=== PATIENT | male | born 1940 | race Caucasian/White ===

== ENCOUNTER 2017-10-11 15:43 | Emergency (ER) | payer MEDICARE, OTHER ==
[~2017-10-11] VITALS: Ht 177.8 cm; Wt 77.1 kg
[2017-10-11 16:23] LABS: BASOPHILS ABSOLUTE AUTO 0.05 K/mm3 (0.00-0.23); BASOPHILS PERCENT AUTO 1 % (0-2); EOSINOPHILS ABSOLUTE AUTO 0.36 K/mm3 (0.00-0.68); EOSINOPHILS PERCENT AUTO 5 % (0-6); Hematocrit 43.7 % (37.0-53.0); Hemoglobin 15.1 g/dL (13.5-17.5); IMMATURE GRAN ABSOLUTE AUTO 0.03 K/mm3 (0.00-0.10); IMMATURE GRAN PERCENT AUTO 0 % (0-1); LYMPHOCYTES ABSOLUTE AUTO 1.59 K/mm3 (0.84-5.20); LYMPHOCYTES PERCENT AUTO 21 % (21-46); MONOCYTES ABSOLUTE AUTO 0.88 K/mm3 (0.16-1.47); MONOCYTES PERCENT AUTO 12 % (4-13); Mean Corpuscular HGB 33.2 pg (26.0-34.0); Mean Corpuscular HGB Conc 34.6 g/dL (31.5-36.5); Mean Corpuscular Volume 96 fL (80-100); NEUTROPHILS ABSOLUTE AUTO 4.77 K/mm3 (1.96-9.15); NEUTROPHILS PERCENT AUTO 62 % (41-73); Platelet Count 211 K/mm3 (150-400); RDW Coefficient Variation 15.4 % (11.7-14.2); RDW Standard Deviation 54.4 fL (35.1-46.3); Red Blood Cell Count 4.55 M/mm3 (4.30-5.90); White Blood Cell Count 7.68 K/mm3 (4.00-11.30)
[2017-10-11 16:41] LABS: Alanine Aminotransfer (ALT/SGP 19 U/L (12-78); Albumin, Blood 3.1 g/dL (3.4-5.0); Albumin/Globulin Ratio 0.7 (0.8-1.8); Alk Phos 95 U/L (50-136); Anion Gap 7 mmol/L (6-16); Aspartate Aminotrans (AST/SGOT 35 U/L (12-37); Blood Urea Nitrogen 16 mg/dL (8-24); Bun/Creatinine Ratio 13.7 (12.0-20.0); CO2, Blood 26 mmol/L (21-32); Calcium, Blood 8.7 mg/dL (8.5-10.1); Chloride, Blood 105 mmol/L (98-108); Creatinine, Blood 1.17 mg/dL (0.60-1.20); Globulin, Blood 4.2 g/dL (2.2-4.0); Glomerular Filtration Rate >60 (60-); Glucose, Blood 90 mg/dL (70-99); Potassium, Blood 4.9 mmol/L (3.5-5.5); Sodium, Blood 138 mmol/L (136-145); Total Protein, Blood 7.3 g/dL (6.4-8.2); Troponin I <0.015 ng/mL (0.000-0.040)
[2017-10-11 16:44] LABS: Thyroid Stimulating Hormone 0.988 uIU/mL (0.360-4.800)
[2017-10-11 17:26] LABS: International Normalized Ratio 1.3; Prothrombin Time Results 13.6 Sec (9.7-11.5)
[2017-10-11] MEDS ORDERED: ALBU90OI61 INH (17:38)
[2017-10-11] MEDS ORDERED: AMLO10 PO (17:39)
[2017-10-11] MEDS ORDERED: CHOL10002 (17:39)
[2017-10-11] MEDS ORDERED: CYAN500 PO (17:40)
[2017-10-11] MEDS ORDERED: FLUO10 PO (17:41)
[2017-10-11] MEDS ORDERED: GABA300T24 (17:41)
[2017-10-11] MEDS ORDERED: LISI20 PO (17:41)
[2017-10-11] MEDS ORDERED: METO25ER PO (17:42)
[2017-10-11] MEDS ORDERED: Hair, Skin & N1 EACH PO (17:43)
[2017-10-11] MEDS ORDERED: SIME80CH PO (17:43)
[2017-10-11] MEDS ORDERED: NIAC250ER (17:43)
[2017-10-11] MEDS ORDERED: TRAZ100 PO (17:44)
[2017-10-11] MEDS ORDERED: TRAM50 PO (17:44)
[2017-10-11] MEDS ORDERED: VITAMIN B COMPLEX (17:45)
[2017-11-29] MEDS ORDERED: Zofran4 MG PO (11:35)
== END 2017-10-11 18:50 | disposition home or self-care (01) ==
LOC: ER 15:43
PROVIDERS: Emergency Medicine
DX: R42 Dizziness and giddiness (principal); Z86.73 Personal history of transient ischemic attack (TIA), and cerebral infarction without residual deficits; X58.XXXA Exposure to other specified factors, initial encounter
CPT/HCPCS: 70450; 71046; 80053; 83735; 83880; 84443; 84484; 85025; 85610; 93005; 93010; 96360; 99284; J7030

== ENCOUNTER 2019-04-25 18:51 | Emergency (ER) | payer OTHER, MEDICARE ==
[~2019-04-25] VITALS: Ht 177.8 cm; Wt 77.1 kg
[~2019-04-25 18:51] MED LIST: ALBU90OI61 INH; AMLO10 PO; CHOL10002; CYAN500 PO; FLUO10 PO; GABA300T24; Hair, Skin & N1 EACH PO; LISI20 PO; METO25ER PO; NIAC250ER; SIME80CH PO; TRAM50 PO; TRAZ100 PO; VITAMIN B COMPLEX; Zofran4 MG PO
[2019-04-25] MEDS ORDERED: Percocet 5-3251 EACH PO (20:23)
[2019-04-25] MEDS ORDERED: IBUP600 PO (20:23)
== END 2019-04-25 21:07 | disposition home or self-care (01) ==
LOC: ER 18:51
DX: S22.41XA Multiple fractures of ribs, right side, initial encounter for closed fracture (principal); Y04.8XXA Assault by other bodily force, initial encounter; Z79.899 Other long term (current) drug therapy; Z79.891 Long term (current) use of opiate analgesic; Z86.73 Personal history of transient ischemic attack (TIA), and cerebral infarction without residual deficits; Z87.891 Personal history of nicotine dependence
CPT/HCPCS: 71101; 99284-25; A9270; A9270-GY

== ENCOUNTER 2019-06-02 19:32 | Emergency (ER) | payer OTHER, MEDICARE ==
[~2019-06-02] VITALS: Ht 177.8 cm; Wt 72.6 kg
[~2019-06-02 19:32] MED LIST changes: +IBUP600 PO; +Percocet 5-3251 EACH PO
[2019-07-28] MEDS ORDERED: FOLI1 PO
[2019-07-28] MEDS ORDERED: METO25ER
[2019-07-28] MEDS ORDERED: GABA300
[2019-07-28] MEDS ORDERED: FAMO20 PO
[2019-07-28] MEDS ORDERED: TAMS.4ER PO (00:01)
[2019-07-28] MEDS ORDERED: B-1100 M1 PO (00:01)
[2019-07-28] MEDS ORDERED: Cymbalta20 MG PT (00:01)
== END 2019-06-02 21:00 | disposition home or self-care (01) ==
LOC: ER 19:32
DX: S01.01XA Laceration without foreign body of scalp, initial encounter (principal); Z86.73 Personal history of transient ischemic attack (TIA), and cerebral infarction without residual deficits; Z87.891 Personal history of nicotine dependence; Z79.899 Other long term (current) drug therapy; W10.1XXA Fall (on)(from) sidewalk curb, initial encounter
CPT/HCPCS: 12001; 70450; 72125; 99283-25

== ENCOUNTER 2019-07-28 23:40 | Emergency (ER) | payer MEDICARE, OTHER ==
[~2019-07-28] VITALS: Ht 177.8 cm; Wt 68.0 kg
[~2019-07-28 23:40] MED LIST changes: +B-1100 M1 PO; +Cymbalta20 MG PT; +FAMO20 PO; +FOLI1 PO; +GABA300; +METO25ER; +TAMS.4ER PO
[2019-07-28] MEDS ORDERED: ELIQUIS5 MG PO (23:59)
[2019-07-29 00:02] LABS: BASOPHILS ABSOLUTE AUTO 0.03 K/mm3 (0.00-0.23); BASOPHILS PERCENT AUTO 0 % (0-2); EOSINOPHILS ABSOLUTE AUTO 0.22 K/mm3 (0.00-0.68); EOSINOPHILS PERCENT AUTO 3 % (0-6); Hematocrit 46.3 % (37.0-53.0); Hemoglobin 15.8 g/dL (13.5-17.5); IMMATURE GRAN ABSOLUTE AUTO 0.02 K/mm3 (0.00-0.10); IMMATURE GRAN PERCENT AUTO 0 % (0-1); LYMPHOCYTES PERCENT AUTO 15 % (21-46); MONOCYTES PERCENT AUTO 9 % (4-13); Mean Corpuscular HGB 32.1 pg (26.0-34.0); Mean Corpuscular HGB Conc 34.1 g/dL (31.5-36.5); Mean Corpuscular Volume 94 fL (80-100); Mean Platelet Volume 9.9 fL (9.1-12.4); NEUTROPHILS ABSOLUTE AUTO 5.52 K/mm3 (1.96-9.15); NEUTROPHILS PERCENT AUTO 73 % (41-73); Platelet Count 190 K/mm3 (150-400); RDW Coefficient Variation 13.5 % (11.7-14.2); Red Blood Cell Count 4.92 M/mm3 (4.30-5.90); White Blood Cell Count 7.59 K/mm3 (4.00-11.30)
[2019-07-29 00:18] LABS: Alanine Aminotransfer (ALT/SGP 27 U/L (12-78); Albumin, Blood 3.4 g/dL (3.4-5.0); Albumin/Globulin Ratio 0.9 (0.8-1.8); Alk Phos 119 U/L (50-136); Anion Gap 7 mmol/L (6-16); Aspartate Aminotrans (AST/SGOT 27 U/L (12-37); Bilirubin, Total 0.7 mg/dL (0.1-1.0); Blood Urea Nitrogen 12 mg/dL (8-24); Bun/Creatinine Ratio 11.1 (12.0-20.0); CO2, Blood 28 mmol/L (21-32); Calcium, Blood 8.8 mg/dL (8.5-10.1); Chloride, Blood 105 mmol/L (98-108); Creatinine, Blood 1.08 mg/dL (0.60-1.20); Globulin, Blood 3.7 g/dL (2.2-4.0); Glomerular Filtration Rate >60 (60-); Glucose, Blood 113 mg/dL (70-99); Sodium, Blood 140 mmol/L (136-145); Total Protein, Blood 7.1 g/dL (6.4-8.2); Troponin I 0.044 ng/mL (0.000-0.040)
[2019-07-29] MEDS ORDERED: Prednisone20 MG PO (03:19)
[2019-07-29] MEDS ORDERED: ALBU90OI INH (03:19)
[2019-07-29] MEDS ORDERED: Zithromax250 MG PO (03:19)
== END 2019-07-29 04:12 | disposition home or self-care (01) ==
LOC: ER 23:40
PROVIDERS: Emergency Medicine
DX: J44.1 Chronic obstructive pulmonary disease with (acute) exacerbation (principal); Z86.79 Personal history of other diseases of the circulatory system; Z79.899 Other long term (current) drug therapy; Z87.891 Personal history of nicotine dependence
CPT/HCPCS: 71046; 80053; 83880; 84484; 85025; 93005; 93010; 94640; 94644; 99284-25; J7512

== ENCOUNTER 2019-09-14 08:19 | Emergency (ER) | payer OTHER, MEDICARE ==
[~2019-09-14] VITALS: Ht 177.8 cm; Wt 68.0 kg
[~2019-09-14 08:19] MED LIST changes: +ALBU90OI INH; +ELIQUIS5 MG PO; +Prednisone20 MG PO; +Zithromax250 MG PO
[2019-09-14 09:04] LABS: BASOPHILS ABSOLUTE AUTO 0.03 K/mm3 (0.00-0.23); BASOPHILS PERCENT AUTO 0 % (0-2); EOSINOPHILS ABSOLUTE AUTO 0.19 K/mm3 (0.00-0.68); EOSINOPHILS PERCENT AUTO 3 % (0-6); Hematocrit 45.4 % (37.0-53.0); Hemoglobin 15.7 g/dL (13.5-17.5); IMMATURE GRAN ABSOLUTE AUTO 0.03 K/mm3 (0.00-0.10); IMMATURE GRAN PERCENT AUTO 0 % (0-1); LYMPHOCYTES ABSOLUTE AUTO 0.87 K/mm3 (0.84-5.20); LYMPHOCYTES PERCENT AUTO 12 % (21-46); MONOCYTES ABSOLUTE AUTO 0.69 K/mm3 (0.16-1.47); MONOCYTES PERCENT AUTO 10 % (4-13); Mean Corpuscular HGB 32.5 pg (26.0-34.0); Mean Corpuscular HGB Conc 34.6 g/dL (31.5-36.5); Mean Corpuscular Volume 94 fL (80-100); Mean Platelet Volume 10.2 fL (9.1-12.4); NEUTROPHILS ABSOLUTE AUTO 5.39 K/mm3 (1.96-9.15); NEUTROPHILS PERCENT AUTO 75 % (41-73); Platelet Count 163 K/mm3 (150-400); RDW Standard Deviation 48.8 fL (35.1-46.3); Red Blood Cell Count 4.83 M/mm3 (4.30-5.90)
[2019-09-14 09:23] LABS: Alanine Aminotransfer (ALT/SGP 25 U/L (12-78); Albumin, Blood 3.4 g/dL (3.4-5.0); Albumin/Globulin Ratio 0.9 (0.8-1.8); Alk Phos 103 U/L (50-136); Anion Gap 4 mmol/L (6-16); Aspartate Aminotrans (AST/SGOT 21 U/L (12-37); Bilirubin, Total 1.4 mg/dL (0.1-1.0); Blood Urea Nitrogen 15 mg/dL (8-24); Bun/Creatinine Ratio 14.3 (12.0-20.0); CO2, Blood 29 mmol/L (21-32); Calcium, Blood 8.7 mg/dL (8.5-10.1); Chloride, Blood 106 mmol/L (98-108); Creatinine, Blood 1.05 mg/dL (0.60-1.20); Globulin, Blood 3.8 g/dL (2.2-4.0); Glomerular Filtration Rate >60 (60-); Glucose, Blood 125 mg/dL (70-99); Sodium, Blood 139 mmol/L (136-145); Total Protein, Blood 7.2 g/dL (6.4-8.2)
[2019-09-14] MEDS ORDERED: Prednisone20 MG PO (10:28)
[2019-09-14] MEDS ORDERED: AZIT250 PO (10:28)
== END 2019-09-14 11:32 | disposition home or self-care (01) ==
LOC: ER 08:19
PROVIDERS: Emergency Medicine
DX: J44.1 Chronic obstructive pulmonary disease with (acute) exacerbation (principal); F17.210 Nicotine dependence, cigarettes, uncomplicated; Z79.899 Other long term (current) drug therapy
CPT/HCPCS: 36415; 71045; 80053; 85025; 93005; 93010; 96374; 99284-25; J2930

== ENCOUNTER 2019-09-28 07:09 | Emergency (ER) | payer OTHER, MEDICARE ==
[~2019-09-28] VITALS: Ht 177.8 cm; Wt 70.3 kg
[~2019-09-28 07:09] MED LIST changes: +AZIT250 PO
[2019-09-28 07:37] LABS: BASOPHILS ABSOLUTE AUTO 0.05 K/mm3 (0.00-0.23); BASOPHILS PERCENT AUTO 1 % (0-2); EOSINOPHILS ABSOLUTE AUTO 0.12 K/mm3 (0.00-0.68); EOSINOPHILS PERCENT AUTO 1 % (0-6); Hematocrit 46.7 % (37.0-53.0); IMMATURE GRAN ABSOLUTE AUTO 0.07 K/mm3 (0.00-0.10); IMMATURE GRAN PERCENT AUTO 1 % (0-1); LYMPHOCYTES ABSOLUTE AUTO 2.29 K/mm3 (0.84-5.20); LYMPHOCYTES PERCENT AUTO 22 % (21-46); MONOCYTES ABSOLUTE AUTO 0.67 K/mm3 (0.16-1.47); MONOCYTES PERCENT AUTO 6 % (4-13); Mean Corpuscular HGB 32.3 pg (26.0-34.0); Mean Corpuscular HGB Conc 34.3 g/dL (31.5-36.5); Mean Corpuscular Volume 94 fL (80-100); Mean Platelet Volume 9.5 fL (9.1-12.4); NEUTROPHILS ABSOLUTE AUTO 7.36 K/mm3 (1.96-9.15); NEUTROPHILS PERCENT AUTO 70 % (41-73); Platelet Count 221 K/mm3 (150-400); RDW Standard Deviation 47.5 fL (35.1-46.3); Red Blood Cell Count 4.96 M/mm3 (4.30-5.90); White Blood Cell Count 10.56 K/mm3 (4.00-11.30)
[2019-09-28 07:55] LABS: Alanine Aminotransfer (ALT/SGP 28 U/L (12-78); Albumin, Blood 3.6 g/dL (3.4-5.0); Albumin/Globulin Ratio 0.9 (0.8-1.8); Alk Phos 110 U/L (50-136); Anion Gap 10 mmol/L (6-16); Aspartate Aminotrans (AST/SGOT 29 U/L (12-37); Bilirubin, Total 1.8 mg/dL (0.1-1.0); Blood Urea Nitrogen 14 mg/dL (8-24); Bun/Creatinine Ratio 12.2 (12.0-20.0); CO2, Blood 25 mmol/L (21-32); Calcium, Blood 9.1 mg/dL (8.5-10.1); Chloride, Blood 107 mmol/L (98-108); Creatinine, Blood 1.15 mg/dL (0.60-1.20); Globulin, Blood 3.8 g/dL (2.2-4.0); Glomerular Filtration Rate >60 (60-); Glucose, Blood 82 mg/dL (70-99); Potassium, Blood 3.9 mmol/L (3.5-5.5); Sodium, Blood 142 mmol/L (136-145); Total Protein, Blood 7.4 g/dL (6.4-8.2)
[2019-09-28 07:57] LABS: Troponin I <0.015 ng/mL (0.000-0.040)
== END 2019-09-28 10:22 | disposition home or self-care (01) ==
LOC: ER 07:09
PROVIDERS: Emergency Medicine
DX: J44.1 Chronic obstructive pulmonary disease with (acute) exacerbation (principal); J06.9 Acute upper respiratory infection, unspecified; Z59.0 Homelessness; Z79.899 Other long term (current) drug therapy; Z87.891 Personal history of nicotine dependence
CPT/HCPCS: 36415; 71046; 80053; 83880; 84484; 85025; 93005; 93010; 99284-25

== ENCOUNTER 2019-09-30 19:13 | Emergency (ER) | payer OTHER, MEDICARE ==
[~2019-09-30] VITALS: Ht 177.8 cm; Wt 68.0 kg
== END 2019-09-30 21:45 | disposition home or self-care (01) ==
LOC: ER 19:13
DX: H91.92 Unspecified hearing loss, left ear (principal); Z59.0 Homelessness; Z79.899 Other long term (current) drug therapy; J44.9 Chronic obstructive pulmonary disease, unspecified; F17.210 Nicotine dependence, cigarettes, uncomplicated
CPT/HCPCS: 99283

== ENCOUNTER 2019-10-03 10:40 | Emergency (ER) | payer OTHER, MEDICARE ==
[~2019-10-03] VITALS: Ht 177.8 cm; Wt 70.3 kg
[~2019-10-03 10:40] MED LIST changes: -CHOL10002; +Cymbalta20 MG PO; -Cymbalta20 MG PT; -ELIQUIS5 MG PO; -METO25ER PO; +VITAMIN D350 MCG PO
[2019-10-03 11:29] LABS: BASOPHILS ABSOLUTE AUTO 0.06 K/mm3 (0.00-0.23); BASOPHILS PERCENT AUTO 1 % (0-2); EOSINOPHILS ABSOLUTE AUTO 0.09 K/mm3 (0.00-0.68); EOSINOPHILS PERCENT AUTO 1 % (0-6); Hematocrit 45.7 % (37.0-53.0); Hemoglobin 15.3 g/dL (13.5-17.5); IMMATURE GRAN ABSOLUTE AUTO 0.06 K/mm3 (0.00-0.10); IMMATURE GRAN PERCENT AUTO 1 % (0-1); LYMPHOCYTES ABSOLUTE AUTO 2.03 K/mm3 (0.84-5.20); LYMPHOCYTES PERCENT AUTO 17 % (21-46); MONOCYTES ABSOLUTE AUTO 1.15 K/mm3 (0.16-1.47); MONOCYTES PERCENT AUTO 10 % (4-13); Mean Corpuscular HGB 32.1 pg (26.0-34.0); Mean Corpuscular HGB Conc 33.5 g/dL (31.5-36.5); Mean Corpuscular Volume 96 fL (80-100); Mean Platelet Volume 10.4 fL (9.1-12.4); NEUTROPHILS ABSOLUTE AUTO 8.35 K/mm3 (1.96-9.15); NEUTROPHILS PERCENT AUTO 71 % (41-73); Platelet Count 218 K/mm3 (150-400); RDW Coefficient Variation 14.4 % (11.7-14.2); RDW Standard Deviation 50.4 fL (35.1-46.3); Red Blood Cell Count 4.77 M/mm3 (4.30-5.90); White Blood Cell Count 11.74 K/mm3 (4.00-11.30)
[2019-10-03 11:49] LABS: Alanine Aminotransfer (ALT/SGP 45 U/L (12-78); Albumin, Blood 3.5 g/dL (3.4-5.0); Albumin/Globulin Ratio 0.9 (0.8-1.8); Alk Phos 94 U/L (50-136); Anion Gap 12 mmol/L (6-16); Aspartate Aminotrans (AST/SGOT 57 U/L (12-37); Bilirubin, Total 1.9 mg/dL (0.1-1.0); Blood Urea Nitrogen 26 mg/dL (8-24); Bun/Creatinine Ratio 23.2 (12.0-20.0); CO2, Blood 24 mmol/L (21-32); Chloride, Blood 106 mmol/L (98-108); Creatinine, Blood 1.12 mg/dL (0.60-1.20); Globulin, Blood 3.7 g/dL (2.2-4.0); Glomerular Filtration Rate >60 (60-); Glucose, Blood 70 mg/dL (70-99); Potassium, Blood 3.6 mmol/L (3.5-5.5); Sodium, Blood 142 mmol/L (136-145); Total Protein, Blood 7.2 g/dL (6.4-8.2); Troponin I <0.015 ng/mL (0.000-0.040)
[2019-10-03] MEDS ORDERED: Toprol Xl25 MG PO (14:52)
[2019-10-03] MEDS ORDERED: ELIQUIS5 MG PO (14:52)
[2019-10-03] MEDS ORDERED: ALBU90OI INH (14:52)
[2019-10-03] MEDS ORDERED: Neurontin 300300 MG PO (14:52)
[2019-10-03] MEDS ORDERED: TRAZ100 PO (14:52)
[2019-10-03] MEDS ORDERED: Prednisone20 MG PO (14:52)
[2019-10-06] MEDS ORDERED: Cymbalta20 MG PO (00:22)
[2019-10-06] MEDS ORDERED: METO25ER PO (00:28)
== END 2019-10-03 15:23 | disposition home or self-care (01) ==
LOC: ER 10:40
PROVIDERS: Emergency Medicine
DX: J44.9 Chronic obstructive pulmonary disease, unspecified (principal); R51 Headache; F17.210 Nicotine dependence, cigarettes, uncomplicated; Z86.73 Personal history of transient ischemic attack (TIA), and cerebral infarction without residual deficits; Z79.51 Long term (current) use of inhaled steroids; Z79.899 Other long term (current) drug therapy
CPT/HCPCS: 36415; 71045; 80053; 83880; 84484; 85025; 93005; 93010; 99284-25; A9270; J7512

== ENCOUNTER 2019-10-05 06:38 | Emergency (ER) | payer OTHER, MEDICARE ==
[~2019-10-05] VITALS: Ht 177.8 cm; Wt 70.3 kg
[~2019-10-05 06:38] MED LIST changes: +ELIQUIS5 MG PO; +Neurontin 300300 MG PO; +Toprol Xl25 MG PO
[2019-10-05 07:42] LABS: BASOPHILS ABSOLUTE AUTO 0.04 K/mm3 (0.00-0.23); BASOPHILS PERCENT AUTO 0 % (0-2); EOSINOPHILS PERCENT AUTO 0 % (0-6); Hematocrit 40.3 % (37.0-53.0); Hemoglobin 13.9 g/dL (13.5-17.5); IMMATURE GRAN ABSOLUTE AUTO 0.15 K/mm3 (0.00-0.10); IMMATURE GRAN PERCENT AUTO 1 % (0-1); LYMPHOCYTES ABSOLUTE AUTO 1.82 K/mm3 (0.84-5.20); LYMPHOCYTES PERCENT AUTO 8 % (21-46); MONOCYTES ABSOLUTE AUTO 2.69 K/mm3 (0.16-1.47); MONOCYTES PERCENT AUTO 11 % (4-13); Mean Corpuscular HGB 32.4 pg (26.0-34.0); Mean Corpuscular HGB Conc 34.5 g/dL (31.5-36.5); Mean Corpuscular Volume 94 fL (80-100); Mean Platelet Volume 11.5 fL (9.1-12.4); NEUTROPHILS PERCENT AUTO 80 % (41-73); Platelet Count 196 K/mm3 (150-400); RDW Coefficient Variation 14.2 % (11.7-14.2); RDW Standard Deviation 48.7 fL (35.1-46.3); Red Blood Cell Count 4.29 M/mm3 (4.30-5.90)
[2019-10-05 07:44] LABS: Base Excess Venous 2.2 mmol/L; Bicarbonate Venous 25.4 mmol/L (24.0-30.0); PO2 Venous 30.2 mmHg (38-42); pH Blood Venous 7.44 (7.34-7.37)
[2019-10-05 08:13] LABS: Alanine Aminotransfer (ALT/SGP 44 U/L (12-78); Albumin/Globulin Ratio 0.8 (0.8-1.8); Alk Phos 87 U/L (50-136); Anion Gap 8 mmol/L (6-16); Aspartate Aminotrans (AST/SGOT 39 U/L (12-37); Bilirubin, Total 2.9 mg/dL (0.1-1.0); Blood Urea Nitrogen 27 mg/dL (8-24); Bun/Creatinine Ratio 20.8 (12.0-20.0); CO2, Blood 26 mmol/L (21-32); Calcium, Blood 8.9 mg/dL (8.5-10.1); Chloride, Blood 104 mmol/L (98-108); Globulin, Blood 3.8 g/dL (2.2-4.0); Glomerular Filtration Rate 57 (60-); Glucose, Blood 141 mg/dL (70-99); Potassium, Blood 3.8 mmol/L (3.5-5.5); Sodium, Blood 138 mmol/L (136-145); Total Protein, Blood 6.8 g/dL (6.4-8.2); Troponin I <0.015 ng/mL (0.000-0.040)
[2019-10-05 09:53] LABS: Source, Urine Voided
[2019-10-05 10:07] LABS: Blood, Urine 2+ (Neg); Glucose Qualitative, Urine 1+ (Neg); Ketones, Urine 3+ (Neg); Leukocyte Esterase, Urine 1+ (Neg); Nitrite, Urine Neg (Neg); Protein, Urine 3+ (Neg); Urobilinogen, Urine 3+ (Normal)
[2019-10-05 10:16] LABS: Appearance, Urine Clear (Clear); Bilirubin, Urine 2+ (Neg); Color, Urine Amber (P-Yellow)
[2019-10-05 10:22] LABS: Bacteria Rare /hpf; Red Blood Cells, Urine 0-2 /hpf (0-2); Squamous Epithelial Cells Not Seen /hpf (Few); White Blood Cells, Urine 0-2 /hpf (0-5)
[2019-10-05 10:36] LABS: Adenovirus Not Detected (NOT DETECT); Coronavirus 229E Not Detected (NOT DETECT); Coronavirus HKU1 Not Detected (NOT DETECT); Coronavirus NL63 Not Detected (NOT DETECT); Coronavirus OC43 Not Detected (NOT DETECT); Human Metapneumovirus Not Detected (NOT DETECT); Human Rhinovirus/Enterovirus Not Detected (NOT DETECT); Influenza A/2009-H1 Not Detected (NOT DETECT); Influenza A/H1 Not Detected (NOT DETECT); Influenza A/H3 Not Detected (NOT DETECT)
[2019-10-05 10:37] LABS: Bordetella pertussis Not Detected (NOT DETECT); Chlamydophila pneumoniae Not Detected (NOT DETECT); Influenza B Not Detected (NOT DETECT); Mycoplasma pneumoniae Not Detected (NOT DETECT); Parainfluenza Virus 1 Not Detected (NOT DETECT); Parainfluenza Virus 2 Not Detected (NOT DETECT); Parainfluenza Virus 3 Not Detected (NOT DETECT); Parainfluenza Virus 4 Not Detected (NOT DETECT); Respiratory Syncytial Virus Not Detected (NOT DETECT)
[2019-10-05] MEDS ORDERED: ACET325 PO (11:00)
[2019-10-05] MEDS ORDERED: AMOCLA875 PO (11:02)
[2019-10-05] MEDS ORDERED: Flonase 0.05% N16 GM (11:04)
[2019-10-05] MEDS ORDERED: GUAI600T33 PO (11:06)
[2019-10-05] MEDS ORDERED: STIOLTO RESPIMAT4 GM INH (11:07)
[2019-10-06] MEDS ORDERED: Cymbalta20 MG PO (00:22)
[2019-10-06] MEDS ORDERED: METO25ER PO (00:28)
== END 2019-10-05 13:00 | disposition short-term general hospital (02) ==
LOC: ER 06:38
PROVIDERS: Emergency Medicine
DX: J44.1 Chronic obstructive pulmonary disease with (acute) exacerbation (principal); R09.02 Hypoxemia; D72.829 Elevated white blood cell count, unspecified; I77.9 Disorder of arteries and arterioles, unspecified; Z86.73 Personal history of transient ischemic attack (TIA), and cerebral infarction without residual deficits; I50.9 Heart failure, unspecified; F17.210 Nicotine dependence, cigarettes, uncomplicated; Z79.51 Long term (current) use of inhaled steroids; Z79.899 Other long term (current) drug therapy; Z79.52 Long term (current) use of systemic steroids
CPT/HCPCS: 0099U; 36415; 71045; 74177; 80053; 81001; 82550; 82803; 83605; 84145; 84484; 85025; 86850; 86900; 86901; 87086; 93005; 93010; 94640; 96365-59; 96366; 96367; 96375; 96376; 99285-25; A9270-GY; J2930; J3475; J7030; Q9967

== ENCOUNTER → 2020-10-24 | Outpatient (CLI) | payer MEDICARE, OTHER ==
[~2020-10-24] MED LIST changes: +ACET325 PO; +AMOCLA875 PO; +Flonase 0.05% N16 GM; +GUAI600T33 PO; +METO25ER PO; +STIOLTO RESPIMAT4 GM INH
[2020-10-25 06:18] LABS: BASOPHILS ABSOLUTE AUTO 0.03 K/mm3 (0.00-0.23); BASOPHILS PERCENT AUTO 0 % (0-2); EOSINOPHILS ABSOLUTE AUTO 0.24 K/mm3 (0.00-0.68); EOSINOPHILS PERCENT AUTO 3 % (0-6); Hematocrit 41.3 % (37.0-53.0); Hemoglobin 13.4 g/dL (13.5-17.5); IMMATURE GRAN ABSOLUTE AUTO 0.03 K/mm3 (0.00-0.10); IMMATURE GRAN PERCENT AUTO 0 % (0-1); LYMPHOCYTES ABSOLUTE AUTO 2.26 K/mm3 (0.84-5.20); LYMPHOCYTES PERCENT AUTO 31 % (21-46); MONOCYTES ABSOLUTE AUTO 0.62 K/mm3 (0.16-1.47); MONOCYTES PERCENT AUTO 9 % (4-13); Mean Corpuscular HGB 29.6 pg (26.0-34.0); Mean Corpuscular HGB Conc 32.4 g/dL (31.5-36.5); Mean Corpuscular Volume 91 fL (80-100); NEUTROPHILS PERCENT AUTO 56 % (41-73); Platelet Count 193 K/mm3 (150-400); RDW Coefficient Variation 14.4 % (11.7-14.2); RDW Standard Deviation 48.4 fL (35.1-46.3); Red Blood Cell Count 4.53 M/mm3 (4.30-5.90); White Blood Cell Count 7.28 K/mm3 (4.00-11.30)
[2020-10-25 06:35] LABS: Anion Gap 5 mmol/L (6-16); Blood Urea Nitrogen 24 mg/dL (8-24); Bun/Creatinine Ratio 20.2 (12.0-20.0); CO2, Blood 28 mmol/L (21-32); Calcium, Blood 8.4 mg/dL (8.5-10.1); Chloride, Blood 107 mmol/L (98-108); Creatinine, Blood 1.19 mg/dL (0.60-1.20); Glomerular Filtration Rate >60 (60-); Glucose, Blood 103 mg/dL (70-99); Sodium, Blood 140 mmol/L (136-145)
== END | disposition home or self-care (01) ==
LOC: LAB SHORT 06:10 → LAB UVN 06:10 → LAB SHORT 10-25 06:10 → EDSTATUS 10-28 14:46
PROVIDERS: Family Medicine
DX: I71.3 Abdominal aortic aneurysm, ruptured (principal); I10 Essential (primary) hypertension; J44.9 Chronic obstructive pulmonary disease, unspecified
CPT/HCPCS: 80048; 85025

== ENCOUNTER → 2020-11-26 | Outpatient (CLI) | payer MEDICARE, OTHER ==
[2020-11-27 07:14] LABS: Bun/Creatinine Ratio 17.1 (12.0-20.0); Calcium, Blood 8.6 mg/dL (8.5-10.1); Creatinine, Blood 1.4 mg/dL (0.60-1.20)
== END | disposition home or self-care (01) ==
LOC: EDSTATUS 12:12 → LAB UVN 21:40
PROVIDERS: Internal Medicine
DX: N18.31 Chronic kidney disease, stage 3a (principal)
CPT/HCPCS: 80048

== ENCOUNTER → 2022-06-25 | Outpatient (CLI) | payer MEDICARE, OTHER ==
[2022-06-25 11:07] LABS: BASOPHILS ABSOLUTE AUTO 0.03 K/mm3 (0.00-0.23); BASOPHILS PERCENT AUTO 1 % (0-2); EOSINOPHILS ABSOLUTE AUTO 0.15 K/mm3 (0.00-0.68); EOSINOPHILS PERCENT AUTO 2 % (0-6); Hematocrit 38.6 % (37.0-53.0); Hemoglobin 12.6 g/dL (13.5-17.5); IMMATURE GRAN ABSOLUTE AUTO 0.02 K/mm3 (0.00-0.10); IMMATURE GRAN PERCENT AUTO 0 % (0-1); LYMPHOCYTES ABSOLUTE AUTO 2.19 K/mm3 (0.84-5.20); LYMPHOCYTES PERCENT AUTO 35 % (21-46); MONOCYTES PERCENT AUTO 8 % (4-13); Mean Corpuscular HGB 27.6 pg (26.0-34.0); Mean Corpuscular HGB Conc 32.6 g/dL (31.5-36.5); Mean Corpuscular Volume 85 fL (80-100); Mean Platelet Volume 10.9 fL (9.1-12.4); NEUTROPHILS ABSOLUTE AUTO 3.38 K/mm3 (1.96-9.15); NEUTROPHILS PERCENT AUTO 54 % (41-73); Platelet Count 216 K/mm3 (150-400); RDW Coefficient Variation 17.7 % (11.7-14.2); RDW Standard Deviation 54.2 fL (35.1-46.3); Red Blood Cell Count 4.57 M/mm3 (4.30-5.90); White Blood Cell Count 6.27 K/mm3 (4.00-11.30)
[2022-06-25 11:22] LABS: Alanine Aminotransfer (ALT/SGP 47 U/L (12-78); Albumin, Blood 2.7 g/dL (3.4-5.0); Albumin/Globulin Ratio 0.7 (0.8-1.8); Alk Phos 169 U/L (50-136); Anion Gap 6 mmol/L (6-16); Aspartate Aminotrans (AST/SGOT 30 U/L (12-37); Bilirubin, Total 0.6 mg/dL (0.1-1.0); Blood Urea Nitrogen 14 mg/dL (8-24); Bun/Creatinine Ratio 14.3 (12.0-20.0); CHOL/HDL RATIO 3.8; CO2, Blood 28 mmol/L (21-32); Calcium, Blood 8.7 mg/dL (8.5-10.1); Chloride, Blood 109 mmol/L (98-108); Cholesterol 148 mg/dL (50-200); Creatinine, Blood 0.98 mg/dL (0.60-1.20); Free Thyroxine 0.98 ng/dL (0.70-1.60); Globulin, Blood 3.8 g/dL (2.2-4.0); Glomerular Filtration Rate 78 (60-); Glucose, Blood 74 mg/dL (70-99); HDL Cholesterol 39 mg/dL (>39); LDL/HDL RATIO 2.4; Lactate Dehydrogenase (Ld),Bld 184 U/L (100-240); Low Density Lipoprotein Chol 93 mg/dL (0-110); Potassium, Blood 4.1 mmol/L (3.5-5.5); Sodium, Blood 143 mmol/L (136-145); Total Protein, Blood 6.5 g/dL (6.4-8.2); Triglycerides 80 mg/dL (30-160); Very Low Density Lipoprot Chol 16 mg/dL (6-32)
== END | disposition home or self-care (01) ==
LOC: LAB SHORT 06:50 → LAB 06:50
PROVIDERS: Family Medicine Adult Medicine
DX: Z13.6 Encounter for screening for cardiovascular disorders (principal); E55.9 Vitamin D deficiency, unspecified; F03.90 Unspecified dementia, unspecified severity, without behavioral disturbance, psychotic disturbance, mood disturbance, and anxiety; R63.4 Abnormal weight loss
CPT/HCPCS: 80053; 80061; 82607; 82746; 83615; 84439; 84443; 85025; 86140

== ENCOUNTER 2022-10-20 02:03 | Emergency (ER) | payer MEDICARE, OTHER ==
[~2022-10-20] VITALS: Ht 154.9 cm; Wt 72.6 kg
[2022-10-20 03:47] LABS: Albumin, Blood 3.1 g/dL (3.4-5.0); Albumin/Globulin Ratio 0.8 (0.8-1.8); Bilirubin, Total 0.4 mg/dL (0.1-1.0); Bun/Creatinine Ratio 19.8 (12.0-20.0); Creatinine, Blood 1.26 mg/dL (0.60-1.20); Globulin, Blood 3.8 g/dL (2.2-4.0); Potassium, Blood 4.5 mmol/L (3.5-5.5); Total Protein, Blood 6.9 g/dL (6.4-8.2)
[2022-10-20 03:56] LABS: BASOPHILS ABSOLUTE AUTO 0.04 K/mm3 (0.00-0.23); BASOPHILS PERCENT AUTO 1 % (0-2); EOSINOPHILS ABSOLUTE AUTO 0.33 K/mm3 (0.00-0.68); EOSINOPHILS PERCENT AUTO 4 % (0-6); Hemoglobin 13.7 g/dL (13.5-17.5); IMMATURE GRAN ABSOLUTE AUTO 0.03 K/mm3 (0.00-0.10); IMMATURE GRAN PERCENT AUTO 0 % (0-1); LYMPHOCYTES ABSOLUTE AUTO 2.27 K/mm3 (0.84-5.20); LYMPHOCYTES PERCENT AUTO 26 % (21-46); MONOCYTES ABSOLUTE AUTO 0.56 K/mm3 (0.16-1.47); MONOCYTES PERCENT AUTO 6 % (4-13); Mean Corpuscular HGB 29.3 pg (26.0-34.0); Mean Corpuscular HGB Conc 33.4 g/dL (31.5-36.5); Mean Corpuscular Volume 88 fL (80-100); NEUTROPHILS ABSOLUTE AUTO 5.61 K/mm3 (1.96-9.15); NEUTROPHILS PERCENT AUTO 64 % (41-73); Platelet Count 179 K/mm3 (150-400); RDW Standard Deviation 51.9 fL (35.1-46.3); Red Blood Cell Count 4.67 M/mm3 (4.30-5.90); White Blood Cell Count 8.84 K/mm3 (4.00-11.30)
== END 2022-10-20 06:15 | disposition home or self-care (01) ==
LOC: ER 02:03
PROVIDERS: Emergency Medicine
DX: R11.0 Nausea (principal); J44.9 Chronic obstructive pulmonary disease, unspecified; I13.0 Hypertensive heart and chronic kidney disease with heart failure and stage 1 through stage 4 chronic kidney disease, or unspecified chronic kidney disease; I50.9 Heart failure, unspecified; N18.30 Chronic kidney disease, stage 3 unspecified; N40.0 Benign prostatic hyperplasia without lower urinary tract symptoms; F17.210 Nicotine dependence, cigarettes, uncomplicated; Z86.73 Personal history of transient ischemic attack (TIA), and cerebral infarction without residual deficits; Z79.01 Long term (current) use of anticoagulants
CPT/HCPCS: 36415; 80053; 83690; 84484; 85025

== ENCOUNTER 2024-02-02 22:58 | Emergency (ER) | payer MEDICARE, OTHER ==
[~2024-02-02] VITALS: Ht 177.8 cm; Wt 77.1 kg
[~2024-02-02 22:58] MED LIST changes: +LOPE2C PO; +ONDA4ODT MM
[2024-02-03] MEDS ORDERED: DONEPEZIL HCL5 M2 PO (00:28)
[2024-02-03] MEDS ORDERED: HYDCHL25 PO (00:29)
[2024-02-03] MEDS ORDERED: REMERON1510 PO (00:29)
[2024-02-03] MEDS ORDERED: QUETIAPINE FUMA25 MG PO (00:30)
[2024-02-03] MEDS ORDERED: ZOLOFT50 MG PO (00:30)
[2024-02-03] MEDS ORDERED: FLUTICASONE-SA1 EA10 INH (01:01)
[2024-02-03 04:00] VITALS: BP 141/107
== END 2024-02-03 04:36 | disposition home or self-care (01) ==
LOC: ER 22:58
DX: S09.90XA Unspecified injury of head, initial encounter (principal); W10.2XXA Fall (on)(from) incline, initial encounter; I13.0 Hypertensive heart and chronic kidney disease with heart failure and stage 1 through stage 4 chronic kidney disease, or unspecified chronic kidney disease; I50.9 Heart failure, unspecified; N18.30 Chronic kidney disease, stage 3 unspecified; J44.9 Chronic obstructive pulmonary disease, unspecified; I48.91 Unspecified atrial fibrillation; K21.9 Gastro-esophageal reflux disease without esophagitis; Z79.899 Other long term (current) drug therapy; Z79.01 Long term (current) use of anticoagulants; F17.200 Nicotine dependence, unspecified, uncomplicated
CPT/HCPCS: 70450; 72125; 99284-25

== ENCOUNTER 2024-05-27 08:28 | Emergency (ER) | payer MEDICARE, OTHER ==
[~2024-05-27] VITALS: Ht 177.8 cm; Wt 83.9 kg
[~2024-05-27 08:28] MED LIST changes: +DONEPEZIL HCL5 M2 PO; +FLUTICASONE-SA1 EA10 INH; +HYDCHL25 PO; +QUETIAPINE FUMA25 MG PO; +REMERON1510 PO; +ZOLOFT50 MG PO
[2024-05-27 10:34] VITALS: BP 174/72
== END 2024-05-27 10:44 | disposition home or self-care (01) ==
LOC: ER 08:28
DX: J44.9 Chronic obstructive pulmonary disease, unspecified (principal); I50.9 Heart failure, unspecified; I48.91 Unspecified atrial fibrillation; K21.9 Gastro-esophageal reflux disease without esophagitis; N18.30 Chronic kidney disease, stage 3 unspecified; I13.0 Hypertensive heart and chronic kidney disease with heart failure and stage 1 through stage 4 chronic kidney disease, or unspecified chronic kidney disease; Z79.899 Other long term (current) drug therapy; F17.200 Nicotine dependence, unspecified, uncomplicated
CPT/HCPCS: 71045; 93005; 93010; 99285-25

== ENCOUNTER → 2024-07-06 | Outpatient (CLI) | payer MEDICARE, OTHER ==
[2024-07-06 11:54] LABS: Albumin, Blood 3.4 g/dL (3.4-5.0); Albumin/Globulin Ratio 0.8 (0.8-1.8); Bilirubin, Total 0.3 mg/dL (0.1-1.0); Bun/Creatinine Ratio 18.5 (12.0-20.0); Calcium, Blood 9.3 mg/dL (8.5-10.1); Creatinine, Blood 1.51 mg/dL (0.60-1.20); Potassium, Blood 4.2 mmol/L (3.5-5.5); Total Protein, Blood 7.4 g/dL (6.4-8.2)
== END ==
LOC: LAB 10:38 → LAB SHORT 10:38
PROVIDERS: Family Medicine Adult Medicine
DX: N18.31 Chronic kidney disease, stage 3a (principal)
CPT/HCPCS: 36415; 80053

== ENCOUNTER 2024-09-15 09:21 | Inpatient (IN) | payer MEDICARE, OTHER ==
[~2024-09-15] VITALS: Ht 182.9 cm; Wt 65.9 kg
[2024-09-15] MEDS ORDERED: Ipratropium/Albuterol SulF 2.5-0.5MG/3 ML Amp INH ONE ×2 (09:40→11:55)
[2024-09-15 10:33] LABS: BASOPHILS ABSOLUTE AUTO 0.02 K/mm3 (0.00-0.23); BASOPHILS PERCENT AUTO 0 % (0-2); EOSINOPHILS ABSOLUTE AUTO 0.01 K/mm3 (0.00-0.68); EOSINOPHILS PERCENT AUTO 0 % (0-6); Hematocrit 42.7 % (37.0-53.0); Hemoglobin 14.8 g/dL (13.5-17.5); IMMATURE GRAN ABSOLUTE AUTO 0.03 K/mm3 (0.00-0.10); IMMATURE GRAN PERCENT AUTO 1 % (0-1); LYMPHOCYTES ABSOLUTE AUTO 1.59 K/mm3 (0.84-5.20); LYMPHOCYTES PERCENT AUTO 26 % (21-46); MONOCYTES ABSOLUTE AUTO 0.72 K/mm3 (0.16-1.47); MONOCYTES PERCENT AUTO 12 % (4-13); Mean Corpuscular HGB Conc 34.7 g/dL (31.5-36.5); Mean Corpuscular Volume 87 fL (80-100); Mean Platelet Volume 10.7 fL (9.1-12.4); NEUTROPHILS ABSOLUTE AUTO 3.73 K/mm3 (1.96-9.15); NEUTROPHILS PERCENT AUTO 61 % (41-73); Platelet Count 203 K/mm3 (150-400); RDW Coefficient Variation 14.2 % (11.7-14.2); RDW Standard Deviation 45.3 fL (35.1-46.3); Red Blood Cell Count 4.93 M/mm3 (4.30-5.90)
[2024-09-15 11:09] LABS: Albumin, Blood 2.9 g/dL (3.4-5.0); Albumin/Globulin Ratio 0.6 (0.8-1.8); Bilirubin, Total 0.9 mg/dL (0.1-1.0); Bun/Creatinine Ratio 29.9 (12.0-20.0); Calcium, Blood 8.7 mg/dL (8.5-10.1); Creatinine, Blood 1.47 mg/dL (0.60-1.20); Globulin, Blood 4.5 g/dL (2.2-4.0); Potassium, Blood 4.1 mmol/L (3.5-5.5); Total Protein, Blood 7.4 g/dL (6.4-8.2)
[2024-09-15 11:15] LABS: Influenza B, PCR NEGATIVE (NEGATIVE); Resp Syncytial Virus, PCR NEGATIVE (NEGATIVE); SARS-Cov-2 (COVID-19) PCR, MMC NEGATIVE (NEGATIVE)
[2024-09-15] MEDS ORDERED: MethylPREDNISolone Sod Succ 125 MG Vial IV ONE (11:55)
[2024-09-15] MEDS ORDERED: FLU VACC TS2024-25(6MOS UP)/PF 45 MCG/0.5 ML SYRINGE IM SCH (13:20)
[2024-09-15] MEDS ORDERED: Ipratropium/Albuterol SulF 2.5-0.5MG/3 ML Amp INH SCH (13:20)
[2024-09-15] MEDS ORDERED: PNEUMOC 20-VAL CONJ-DIP CRM/PF 0.5 ML SYRINGE IM SCH (13:25)
[2024-09-15] MEDS ORDERED: Azithromycin 500 MG in NS 250 ML IV SCH (13:30)
[2024-09-15] MEDS ORDERED: Lactated Ringer's 1,000 ML IV SCH (13:35)
[2024-09-15] MEDS ORDERED: Oseltamivir Phosphate 75 MG Cap PO ONE (14:00)
[2024-09-15] MEDS ORDERED: Nicotine 14 MG PATCH TOP SCH (14:00)
--- NOTE | 2024-09-15 18:24 | NUR ---
New patient admit, Ray is Isolation for influenza A, significant confusion, dementia, severe emphysema, 1 litre ox but was 99 when he arrived. WHT 65.9 kg. toa 1814 repeated response was either "Im not real sure" or "sometimes yes, sometimes no." for every question...related or not. VITALS performed, strip and skin chk, gown applied, urinal provided, no appetite. 480 ml ice water provided. docile and neautral behavior. all settled in for now. 10 minutes later, yelled out "can you cut up my food'" more alert, happily eating, slowly.
[2024-09-15] MEDS ORDERED: AMLO10 PO (18:27)
[2024-09-15] MEDS ORDERED: STIOLTO RESPIMAT4 G1 INH (18:34)
--- NOTE | 2024-09-15 18:46 | NUR ---
ADMISSION NOTE: PATIENT ARRIVES TO ROOM AT 1815 VIA GURNEY FROM ER FOR DX'S OF COPD EXACERBATION. PATIENT TRANSFERRED TO BED USING SLIDER SHEET c 3 MAX ASSIST. PATIENT A/O TO SELF ONLY, CONFUSED AND NULATO. PATIENT NOT ABLE TO CONTRIBUTE ANY MEDICAL HX D/T CONFUSION. PATIENT MEDRIC COMPLETED c MEDLIST PROVIDED BY [facility], PLACED IN FRONT OF PATIENT CHART. PATIENT ON 2L O2, LUNGS SOUNDS COARSE AND WHEEZY T/O TO AUSCULTATION. ADMISSION VITALS DONE. BED ALARM ON FOR SAFETY. CALL LIGHT IN REACH.
[2024-09-15 20:23] VITALS: BP 129/68
[2024-09-15] MEDS ORDERED: Apixaban 5 MG Tab PO SCH (21:00)
[2024-09-15] MEDS ORDERED: QUEtiapine Fumarate 50 MG TAB PO SCH (21:00)
[2024-09-15] MEDS ORDERED: Mirtazapine 15 MG Tab PO SCH (21:00)
[2024-09-15] MEDS ORDERED: Oseltamvir Phosphate 30 MG Cap PO SCH (23:00)
[2024-09-16] MEDS ORDERED: MethylPREDNISolone Sod Succ 125 MG Vial IV SCH
[2024-09-16 04:52] VITALS: BP 146/64
[2024-09-16 05:42] LABS: Hematocrit 39.1 % (37.0-53.0); Hemoglobin 13.7 g/dL (13.5-17.5); Mean Corpuscular HGB 30.4 pg (26.0-34.0); Mean Corpuscular Volume 87 fL (80-100); Platelet Count 181 K/mm3 (150-400); RDW Coefficient Variation 13.8 % (11.7-14.2); White Blood Cell Count 4.66 K/mm3 (4.00-11.30)
[2024-09-16 06:08] LABS: BAND PERCENT MAN 6 % (0-8); BASOPHILS PERCENT MAN 0 % (0-2); EOSINOPHILS PERCENT MAN 0 % (0-6); LYMPHOCYTES % ATYPICAL MANUAL 3 % (0-0); LYMPHOCYTES ABSOLUTE MAN 1.02 K/mm3 (0.84-5.20); LYMPHOCYTES PERCENT MAN 19 % (21-46); MONOCYTES ABSOLUTE MAN 0.23 K/mm3 (0.16-1.47); MONOCYTES PERCENT MAN 5 % (4-13); SEG NEUTROPHILS PERCENT MAN 67 % (41-73); TOTAL CELLS COUNTED 100
[2024-09-16 06:14] LABS: Albumin, Blood 2.8 g/dL (3.4-5.0); Albumin/Globulin Ratio 0.7 (0.8-1.8); Bilirubin, Total 0.8 mg/dL (0.1-1.0); Bun/Creatinine Ratio 31.9 (12.0-20.0); Calcium, Blood 8.7 mg/dL (8.5-10.1); Creatinine, Blood 1.66 mg/dL (0.60-1.20); Globulin, Blood 4.2 g/dL (2.2-4.0); Potassium, Blood 2.9 mmol/L (3.5-5.5)
[2024-09-16] MEDS ORDERED: Potassium Chloride 20 MEQ in NS 90 ML IV ONE (07:15)
[2024-09-16 07:30] VITALS: BP 157/66
[2024-09-16] MEDS ORDERED: NS 250 ML IV PRN (07:55)
[2024-09-16] MEDS ORDERED: Potassium Chloride 10 Meq Tablet SA PO ONE (08:00)
[2024-09-16] MEDS ORDERED: Potassium Chloride 10 Meq Tablet SA PO SCH (08:00)
[2024-09-16] MEDS ORDERED: Metoprolol Succinate 25 MG TABCR PO SCH ×2 (09:00)
[2024-09-16] MEDS ORDERED: Tamsulosin HCl 0.4 MG Cap PO SCH (09:00)
[2024-09-16] MEDS ORDERED: Enoxaparin 40 MG/0.4 ML SYR SC SCH (09:00)
[2024-09-16] MEDS ORDERED: AmLODIPine Besylate 5 MG Tab PO SCH (09:00)
[2024-09-16] MEDS ORDERED: GuaiFENesin 600 MG TabCR PO SCH (10:00)
[2024-09-16] MEDS ORDERED: Ipratropium/Albuterol SulF 2.5-0.5MG/3 ML Amp INH SCH ×2 (10:00→16:50)
[2024-09-16] MEDS ORDERED: Insulin Human Lispro 100 Units/ML 3ML Syringe SC SCH (11:30)
[2024-09-16] MEDS ORDERED: Acetaminophen 325 MG TABLET PO PRN (14:55)
[2024-09-16] MEDS ORDERED: Donepezil HCl 5 MG Tab PO SCH (15:00)
[2024-09-16] MEDS ORDERED: Mometasone/Formoterol MDI 200/5 mcg 13 GM INH SCH (15:00)
[2024-09-16] MEDS ORDERED: Sertraline HCl 50 MG Tab PO SCH (15:00)
--- NOTE | 2024-09-16 15:46 | NUR ---
NOTE: THIS RN WAS NOTIFIED BY [employer] CHAIRSTEPHANIE. PER STEPHANIE, PATIENT HAD 10 BEATS RUN OF V-TACH. PATIENT WAS SITTING UP IN BED COUGHING. NOTIFIED DR. NASH REGARDING THIS CONCERNED, RECEIVED ORDER TO DO EKG.
[2024-09-16 15:47] VITALS: BP 128/57
[2024-09-16 15:54] LABS: Bun/Creatinine Ratio 37.4 (12.0-20.0); Calcium, Blood 8.4 mg/dL (8.5-10.1); Creatinine, Blood 1.55 mg/dL (0.60-1.20); Potassium, Blood 3.5 mmol/L (3.5-5.5)
--- NOTE | 2024-09-16 16:36 | NUR ---
SHIFT SUMMARY: PATIENT A/O TO SELF ONLY, PLEASANTLY CONFUSED AND ALTURAS. PATIENT ON TELE, SR HR IN THE HIGH 70'S BPM c OCCASIONAL PAC. PATIENT HAD OT EPISODE 10 BEATS RUN OF V-TACH THIS SHIFT, DR. NASH WAS NOTIFIED, EKG WAS OBTAINED AND REVIEWED BY DR. NASH. PATIENT MEDICATED X1 FOR PAIN "ALL OVER" PER EMAR c MOD EFFECT. PATIENT ON 2L O2 VIA NC, SATTING 97%, NON PRODUCTIVE COUGH, LUNGS SOUNDS COARSE AND WHEEZY T/O. PATIENT HAS FAIR APPETITE, CONTINENT OF BOWEL/BLADDER, USES URINAL/BSC/BEDPAN c 1 ASSIST. PATIENT RECEIVED OT DOSE OF PO/IV K THIS SHIFT. VITAL SIGNS REVIEWED. BED ALARM ON FOR SAFETY. CALL LIGHT IN REACH.
[2024-09-16 20:14] VITALS: BP 141/68
[2024-09-16] MEDS ORDERED: Gabapentin 300 MG Cap PO SCH (21:00)
[2024-09-16] MEDS ORDERED: DULoxetine HCL 20 MG Cap DR PO SCH (21:00)
[2024-09-17 05:11] VITALS: BP 120/53
[2024-09-17 07:51] VITALS: BP 130/47
[2024-09-17 07:59] VITALS: BP 128/64
[2024-09-17 08:39] LABS: Hematocrit 42.5 % (37.0-53.0); Hemoglobin 14.5 g/dL (13.5-17.5); Mean Corpuscular HGB 30.3 pg (26.0-34.0); Mean Corpuscular HGB Conc 34.1 g/dL (31.5-36.5); Mean Corpuscular Volume 89 fL (80-100); Mean Platelet Volume 11.6 fL (9.1-12.4); Platelet Count 169 K/mm3 (150-400); RDW Coefficient Variation 14.3 % (11.7-14.2); RDW Standard Deviation 46.5 fL (35.1-46.3); Red Blood Cell Count 4.79 M/mm3 (4.30-5.90); White Blood Cell Count 9.23 K/mm3 (4.00-11.30)
[2024-09-17] MEDS ORDERED: Fluticasone 0.05% Nasal Spray SCH (09:00)
[2024-09-17] MEDS ORDERED: HydroCHLOROthiazide 25 mg Tab PO SCH (09:00)
[2024-09-17 09:07] LABS: Free Thyroxine 0.91 ng/dL (0.70-1.60)
[2024-09-17 09:10] LABS: Bun/Creatinine Ratio 41.4 (12.0-20.0); Calcium, Blood 8.7 mg/dL (8.5-10.1); Creatinine, Blood 1.45 mg/dL (0.60-1.20); Potassium, Blood 3.9 mmol/L (3.5-5.5); Triiodothyronine, Free 1.43 pg/mL (2.18-3.98)
[2024-09-17 09:57] LABS: BAND PERCENT MAN 2 % (0-8); BASOPHILS PERCENT MAN 0 % (0-2); EOSINOPHILS PERCENT MAN 0 % (0-6); LYMPHOCYTES % ATYPICAL MANUAL 1 % (0-0); LYMPHOCYTES ABSOLUTE MAN 1.19 K/mm3 (0.84-5.20); LYMPHOCYTES PERCENT MAN 12 % (21-46); MONOCYTES ABSOLUTE MAN 0.36 K/mm3 (0.16-1.47); MONOCYTES PERCENT MAN 4 % (4-13); NEUTROPHILS ABSOLUTE MAN 7.66 K/mm3 (1.96-9.15); SEG NEUTROPHILS PERCENT MAN 81 % (41-73); TOTAL CELLS COUNTED 100
[2024-09-17] MEDS ORDERED: CefTRIAXone Sodium 1,000 MG in NS 100 ML IV SCH (12:00)
[2024-09-17 12:23] VITALS: BP 121/64
[2024-09-17 15:59] VITALS: BP 126/56
[2024-09-17] MEDS ORDERED: Insulin Human Lispro 100 Units/ML 3ML Syringe SC SCH (17:00)
--- NOTE | 2024-09-17 18:00 | NUR ---
SHIFT SUMMARY: PATIENT A/O TO SELF ONLY, PLEASANTLY CONFUSED AND NEWTOK. PATIENT DOES NOT USES CALL LIGHT, HE YELLS OUT FOR HELP, BUT EASILY REORIENTATED. PATIENT DENIES CP/PRESSURE, N/V AND DIZZINESS. PATIENT ON TELE, NSR HR IN THE 70'S BPM c OCCASIONAL PAC. PATIENT CURRENTLY ON RA, SATTING 95-96%, LUNGS SOUNDS HAS FINE CRACKLES AND WHEEZY T/O c NONPRODUCTIVE COUGH. PATIENT RECEIVED BREATHING TX ADMINISTERED BY RT PER ORDER. PATIENT MEDICATED X2 c TYLENOL FOR GENERALIZED PAIN c GOOD EFFECT. PATIENT RECEIVED BEDBATH AND LINEN CHANGED. PATIENT CONTINENT OF BOWEL/BLADDER, USES URINAL AND BSC c 1 ASSIST/FWW. PATIENT SAT UP TO CHAIR FOR ABOUT 2 HRS THIS SHIFT. PATIENT RECEIVED IV ABX/SCHEDULED MEDS PER EMAR. VITAL SIGNS REVIEWED. CALL LIGHT IN REACH.
[2024-09-17 20:28] VITALS: BP 139/63
--- NOTE | 2024-09-18 00:45 | NUR ---
IV TO PT'S RIGHT HAND INFILTRATED DURING ADMINISTRATION OF SOLU-MEDROL. CALLED PHARMACY, NO EXTRAVASION INSTRUCTIONS AVAILABLE FOR THIS MEDICATION, PHARMACIST STATED PH OF MEDICATION CLOSE TO 7. RECEIVED CALL FROM [employer] WHO STATED HE BELIEVES PT CONVERTED TO A-FIB FROM SR W/PACs AT APPROX [id number]. NO NEW ORDERS AT THIS TIME.
[2024-09-18 04:14] VITALS: BP 129/65
--- NOTE | 2024-09-18 05:07 | NUR ---
SHIFT SUMMARY: GUADALUPE IS A&OX1. VSS, NO ACUTE EVENTS OVERNIGHT. PT HAS NOT USED HIS CALL LIGHT, BUT SHOUTS "HELP" WHEN HE REQUIRES ASSISTANCE. HE HAS NOT BEEN IMPULSIVE THIS SHIFT, BED AND CHAIR ALARMS FOR SAFETY. PT HAS USED THE URIAL WITH ONE-PERSON ASSIST. HE IS A ONE-PERSON ASSIST WITH THE FWW AND GAIT BELT. HE HAS TOLERATED PO INTAKE WELL, TAKES PILLS WHOLE WITH WATER, AND HAS DENIED PAIN. HE HAS RESTED QUIETLY WITH HIS EYES CLOSED AND EVEN, UNLABORED RESPIRATIONS FOR SEVERAL HOURS THIS SHIFT, AND IS RESTING QUIETLY NOW. BED IN LOWEST POSITION, CALL LIGHT IN REACH, ATTENDS IN PLACE. PT HAS BEEN CONTINENT THIS SHIFT. WILL GIVE REPORT TO DAY SHIFT RN.
[2024-09-18 06:38] LABS: BASOPHILS ABSOLUTE AUTO 0.01 K/mm3 (0.00-0.23); BASOPHILS PERCENT AUTO 0 % (0-2); EOSINOPHILS PERCENT AUTO 0 % (0-6); Hematocrit 38.1 % (37.0-53.0); IMMATURE GRAN ABSOLUTE AUTO 0.09 K/mm3 (0.00-0.10); IMMATURE GRAN PERCENT AUTO 1 % (0-1); LYMPHOCYTES ABSOLUTE AUTO 1.25 K/mm3 (0.84-5.20); LYMPHOCYTES PERCENT AUTO 13 % (21-46); MONOCYTES ABSOLUTE AUTO 0.29 K/mm3 (0.16-1.47); MONOCYTES PERCENT AUTO 3 % (4-13); Mean Corpuscular HGB 30.2 pg (26.0-34.0); Mean Corpuscular HGB Conc 34.1 g/dL (31.5-36.5); Mean Corpuscular Volume 88 fL (80-100); Mean Platelet Volume 10.5 fL (9.1-12.4); NEUTROPHILS ABSOLUTE AUTO 7.67 K/mm3 (1.96-9.15); NEUTROPHILS PERCENT AUTO 82 % (41-73); Platelet Count 240 K/mm3 (150-400); RDW Coefficient Variation 14.2 % (11.7-14.2); RDW Standard Deviation 46.2 fL (35.1-46.3); Red Blood Cell Count 4.31 M/mm3 (4.30-5.90); White Blood Cell Count 9.31 K/mm3 (4.00-11.30)
[2024-09-18 07:03] LABS: Bun/Creatinine Ratio 39.4 (12.0-20.0); Calcium, Blood 8.5 mg/dL (8.5-10.1); Creatinine, Blood 1.42 mg/dL (0.60-1.20); Potassium, Blood 3.9 mmol/L (3.5-5.5)
[2024-09-18 07:31] VITALS: BP 130/68
[2024-09-18] MEDS ORDERED: Ipratropium/Albuterol SulF 2.5-0.5MG/3 ML Amp INH PRN (10:30)
[2024-09-18] MEDS ORDERED: PredniSONE 20 MG Tab PO SCH (11:00)
[2024-09-18 11:40] VITALS: BP 131/82
[2024-09-18] MEDS ORDERED: FLUTICASONE-SA1 EA10 INH (14:36)
[2024-09-18] MEDS ORDERED: NICODERM CQ1 EA11 TOP (14:41)
[2024-09-18] MEDS ORDERED: PRED20 PO (14:42)
[2024-09-18] MEDS ORDERED: OSELTAMIVIR PHO30 M1 PO (14:42)
[2024-09-18] MEDS ORDERED: CEFP200 PO (14:43)
[2024-09-18 16:09] VITALS: BP 138/61
--- NOTE | 2024-09-18 16:56 | NUR ---
DC-1650 PT LEFT IN STABLE CONDITION WITH ALL BELONGINGS. REPORT CALLED TO DORI WARREN, BUT NO ONE ANSWERED. THIS RN LEFT MESSAGE. PT LEFT VIA AMBULANCE TRANSPORT.
[2024-09-18] MEDS ORDERED: Cefpodoxime Proxetil 200 MG Tab PO SCH (17:00)
[2024-09-18] MEDS ORDERED: MethylPREDNISolone Sod Succ 125 MG Vial IV SCH (21:00)
[2024-09-25 10:15] LABS: Influenza A, PCR POSITIVE (NEGATIVE)
== END 2024-09-18 16:47 | disposition home or self-care (01) | DRG 193 ==
LOC: ER 09:21 → ERHOLD 09:22 → MEDS 18:06
PROVIDERS: Family Medicine; Student in an Organized Health Care Education/Training Program; ADMIT Hospitalist
DX: J10.01 Influenza due to other identified influenza virus with the same other identified influenza virus pneumonia (principal); J96.01 Acute respiratory failure with hypoxia; I13.0 Hypertensive heart and chronic kidney disease with heart failure and stage 1 through stage 4 chronic kidney disease, or unspecified chronic kidney disease; J44.1 Chronic obstructive pulmonary disease with (acute) exacerbation; I48.19 Other persistent atrial fibrillation; F02.83 Dementia in other diseases classified elsewhere, unspecified severity, with mood disturbance; J44.0 Chronic obstructive pulmonary disease with (acute) lower respiratory infection; N18.31 Chronic kidney disease, stage 3a; I50.9 Heart failure, unspecified; E11.22 Type 2 diabetes mellitus with diabetic chronic kidney disease; E11.51 Type 2 diabetes mellitus with diabetic peripheral angiopathy without gangrene; G30.9 Alzheimer's disease, unspecified; N40.0 Benign prostatic hyperplasia without lower urinary tract symptoms; G47.00 Insomnia, unspecified; K21.9 Gastro-esophageal reflux disease without esophagitis; F17.210 Nicotine dependence, cigarettes, uncomplicated; Z79.899 Other long term (current) drug therapy; Z79.01 Long term (current) use of anticoagulants; Z86.73 Personal history of transient ischemic attack (TIA), and cerebral infarction without residual deficits
CPT/HCPCS: 0241U; 36415; 71045; 71046; 80048; 80053; 82947; 83735; 84145; 84439; 84443; 84481; 85025; 93005; 93010; 94640; 94664; 94760; 96365; 96366; 96375; 96376; 97162; 97530; 99285-25; A9270; G0378; J0456; J0696; J2919; J3480; J7050; J7512

== ENCOUNTER 2024-09-19 13:54 | Emergency (ER) | payer MEDICARE, OTHER ==
[~2024-09-19] VITALS: Ht 177.8 cm; Wt 72.6 kg
[~2024-09-19 13:54] MED LIST changes: +CEFP200 PO; +NICODERM CQ1 EA11 TOP; +OSELTAMIVIR PHO30 M1 PO; +PRED20 PO; +STIOLTO RESPIMAT4 G1 INH
[2024-09-19 14:11] VITALS: BP 133/82
== END 2024-09-19 17:53 | disposition home or self-care (01) ==
LOC: ER 13:54
DX: R06.00 Dyspnea, unspecified (principal); Z66 Do not resuscitate; J44.9 Chronic obstructive pulmonary disease, unspecified; I13.0 Hypertensive heart and chronic kidney disease with heart failure and stage 1 through stage 4 chronic kidney disease, or unspecified chronic kidney disease; N18.30 Chronic kidney disease, stage 3 unspecified; I50.9 Heart failure, unspecified; I48.91 Unspecified atrial fibrillation; K21.9 Gastro-esophageal reflux disease without esophagitis; G47.00 Insomnia, unspecified; F17.210 Nicotine dependence, cigarettes, uncomplicated; Z86.73 Personal history of transient ischemic attack (TIA), and cerebral infarction without residual deficits; Z79.52 Long term (current) use of systemic steroids; Z79.51 Long term (current) use of inhaled steroids; Z79.899 Other long term (current) drug therapy
CPT/HCPCS: 99283

== ENCOUNTER 2025-01-28 07:55 | Emergency (ER) | payer MEDICARE, OTHER ==
[~2025-01-28] VITALS: Ht 170.2 cm; Wt 68.0 kg
[2025-01-28] MEDS ORDERED: Albuterol 2.5 MG/3 ML VIAL INH SCH (08:20)
[2025-01-28 08:22] LABS: BASOPHILS ABSOLUTE AUTO 0.05 K/mm3 (0.00-0.23); BASOPHILS PERCENT AUTO 1 % (0-2); EOSINOPHILS ABSOLUTE AUTO 0.42 K/mm3 (0.00-0.68); EOSINOPHILS PERCENT AUTO 5 % (0-6); Hematocrit 43.2 % (37.0-53.0); Hemoglobin 14.6 g/dL (13.5-17.5); IMMATURE GRAN ABSOLUTE AUTO 0.03 K/mm3 (0.00-0.10); IMMATURE GRAN PERCENT AUTO 0 % (0-1); LYMPHOCYTES ABSOLUTE AUTO 2.47 K/mm3 (0.84-5.20); LYMPHOCYTES PERCENT AUTO 31 % (21-46); MONOCYTES ABSOLUTE AUTO 0.75 K/mm3 (0.16-1.47); MONOCYTES PERCENT AUTO 9 % (4-13); Mean Corpuscular HGB Conc 33.8 g/dL (31.5-36.5); Mean Corpuscular Volume 88 fL (80-100); NEUTROPHILS ABSOLUTE AUTO 4.27 K/mm3 (1.96-9.15); NEUTROPHILS PERCENT AUTO 53 % (41-73); NRBC ABSOLUTE 0.00 K/mm3 (0.00-0.02); NRBC Auto 0.0 /100 WBC (0.0-0.2); Platelet Count 209 K/mm3 (150-400); RDW Coefficient Variation 14.4 % (11.7-14.2); RDW Standard Deviation 46.1 fL (35.1-46.3)
[2025-01-28 08:39] LABS: Alanine Aminotransfer (ALT/SGP 26.0 U/L (12-78); Albumin, Blood 3.1 g/dL (3.4-5.0); Albumin/Globulin Ratio 0.9 (0.8-1.8); Anion Gap 5.0 mmol/L (3-11); Aspartate Aminotrans (AST/SGOT 23.0 U/L (12-37); Bilirubin, Total 0.5 mg/dL (0.1-1.0); Blood Urea Nitrogen 26.0 mg/dL (8-24); CO2, Blood 31.0 mmol/L (21-32); Calcium, Blood 8.3 mg/dL (8.5-10.1); Chloride, Blood 106.0 mmol/L (98-108); Creatinine, Blood 1.33 mg/dL (0.60-1.20); Globulin, Blood 3.4 g/dL (2.2-4.0); Glucose, Blood 104.0 mg/dL (70-99); Potassium, Blood 3.8 mmol/L (3.5-5.5); Sodium, Blood 138.0 mmol/L (136-145); Total Protein, Blood 6.5 g/dL (6.4-8.2)
[2025-01-28] MEDS ORDERED: BISA10S PR (08:45)
[2025-01-28] MEDS ORDERED: MULTI-VITAMIN1 EAC2 PO (08:45)
[2025-01-28] MEDS ORDERED: Preservision S1 EACH PO (08:46)
[2025-01-28] MEDS ORDERED: Seroquel Xr50 MG PO (08:47)
[2025-01-28] MEDS ORDERED: AZIT250 PO (10:02)
[2025-01-28] MEDS ORDERED: PRED20 PO (10:02)
[2025-01-28 11:27] VITALS: BP 131/61
== END 2025-01-28 12:00 | disposition home or self-care (01) ==
LOC: ER 07:55
PROVIDERS: Emergency Medicine
DX: J44.1 Chronic obstructive pulmonary disease with (acute) exacerbation (principal); I13.0 Hypertensive heart and chronic kidney disease with heart failure and stage 1 through stage 4 chronic kidney disease, or unspecified chronic kidney disease; I50.9 Heart failure, unspecified; N18.30 Chronic kidney disease, stage 3 unspecified; G47.00 Insomnia, unspecified; I48.91 Unspecified atrial fibrillation; F17.210 Nicotine dependence, cigarettes, uncomplicated; Z86.73 Personal history of transient ischemic attack (TIA), and cerebral infarction without residual deficits; Z79.51 Long term (current) use of inhaled steroids; Z79.52 Long term (current) use of systemic steroids; Z79.899 Other long term (current) drug therapy
CPT/HCPCS: 71045; 80053; 84484; 85025; 93005; 93010; 99285-25

== ENCOUNTER 2025-05-13 06:27 | Emergency (ER) | payer MEDICARE, OTHER ==
[~2025-05-13] VITALS: Ht 185.4 cm; Wt 90.7 kg
[~2025-05-13 06:27] MED LIST changes: +BISA10S PR; +MULTI-VITAMIN1 EAC2 PO; +Preservision S1 EACH PO; +Seroquel Xr50 MG PO
[2025-05-13] MEDS ORDERED: Albuterol 2.5 MG/3 ML VIAL INH SCH (06:30)
[2025-05-13 06:54] LABS: BASOPHILS ABSOLUTE AUTO 0.04 K/mm3 (0.00-0.23); BASOPHILS PERCENT AUTO 1 % (0-2); EOSINOPHILS ABSOLUTE AUTO 0.19 K/mm3 (0.00-0.68); EOSINOPHILS PERCENT AUTO 3 % (0-6); Hematocrit 46.7 % (37.0-53.0); Hemoglobin 16.0 g/dL (13.5-17.5); IMMATURE GRAN ABSOLUTE AUTO 0.02 K/mm3 (0.00-0.10); IMMATURE GRAN PERCENT AUTO 0 % (0-1); LYMPHOCYTES ABSOLUTE AUTO 2.10 K/mm3 (0.84-5.20); LYMPHOCYTES PERCENT AUTO 30 % (21-46); MONOCYTES ABSOLUTE AUTO 0.64 K/mm3 (0.16-1.47); MONOCYTES PERCENT AUTO 9 % (4-13); Mean Corpuscular HGB Conc 34.3 g/dL (31.5-36.5); Mean Corpuscular Volume 92 fL (80-100); NEUTROPHILS ABSOLUTE AUTO 4.07 K/mm3 (1.96-9.15); NEUTROPHILS PERCENT AUTO 58 % (41-73); NRBC ABSOLUTE 0.00 K/mm3 (0.00-0.02); NRBC Auto 0.0 /100 WBC (0.0-0.2); Platelet Count 186 K/mm3 (150-400); RDW Coefficient Variation 14.3 % (11.7-14.2); RDW Standard Deviation 48.2 fL (35.1-46.3)
[2025-05-13 07:17] LABS: Alanine Aminotransfer (ALT/SGP 32.0 U/L (12-78); Albumin, Blood 3.6 g/dL (3.4-5.0); Albumin/Globulin Ratio 1.0 (0.8-1.8); Anion Gap 7.0 mmol/L (3-11); Aspartate Aminotrans (AST/SGOT 24.0 U/L (12-37); Bilirubin, Total 0.8 mg/dL (0.1-1.0); Blood Urea Nitrogen 27.0 mg/dL (8-24); CO2, Blood 33.0 mmol/L (21-32); Calcium, Blood 9.5 mg/dL (8.5-10.1); Chloride, Blood 103.0 mmol/L (98-108); Creatinine, Blood 1.34 mg/dL (0.60-1.20); Globulin, Blood 3.6 g/dL (2.2-4.0); Glucose, Blood 117.0 mg/dL (70-99); Potassium, Blood 3.8 mmol/L (3.5-5.5); Sodium, Blood 139.0 mmol/L (136-145); Total Protein, Blood 7.2 g/dL (6.4-8.2)
[2025-05-13 09:00] VITALS: BP 170/74
== END 2025-05-13 09:06 | disposition home or self-care (01) ==
LOC: ER 06:27
PROVIDERS: Emergency Medicine
DX: J44.1 Chronic obstructive pulmonary disease with (acute) exacerbation (principal); I13.0 Hypertensive heart and chronic kidney disease with heart failure and stage 1 through stage 4 chronic kidney disease, or unspecified chronic kidney disease; N18.30 Chronic kidney disease, stage 3 unspecified; I50.9 Heart failure, unspecified; I48.91 Unspecified atrial fibrillation; K21.9 Gastro-esophageal reflux disease without esophagitis; F17.210 Nicotine dependence, cigarettes, uncomplicated; Z86.73 Personal history of transient ischemic attack (TIA), and cerebral infarction without residual deficits; Z79.01 Long term (current) use of anticoagulants; Z79.52 Long term (current) use of systemic steroids; Z79.899 Other long term (current) drug therapy
CPT/HCPCS: 71045; 80053; 85025; 93005; 93010; 96374; 99285-25; A9270; J2919

== ENCOUNTER 2025-06-12 08:06 | Day surgery (SDC) | payer OTHER ==
[~2025-06-12] VITALS: Ht 177.8 cm; Wt 70.0 kg
[~2025-06-12 08:06] MED LIST changes: +Balanced Salt Epinephrine Irrigation Solution 500 mL IR SCH; +Moxifloxacin HCL 0.5 MG/0.1 ML 0.4MLSYR LEFTEYE SCH; +NS 500 ML IV ONE; +PHENYLEPHRINE\\TROPICAMIDE\\TETRACAINE OPHTHALMIC DILATING SOLN LEFTEYE PRN; +Povidone-Iodine 450 DROP/30 ML Solution LEFTEYE SCH; +Povidone-Iodine 450 DROP/30 ML Solution ONE; +Tetracaine HCl/Pf 0.5% Opth Soln 4 ml ONE
[2025-06-12] MEDS ORDERED: Midazolam HCl 1MG / ML 2ML Vial ONE (08:58)
[2025-06-12] MEDS ORDERED: FentaNYL Citrate 50 MCG/ML 2 ML Injection ONE (08:58)
[2025-06-12] MEDS ORDERED: METOPROLOL SUCC25 MG PO (09:13)
[2025-06-12] MEDS ORDERED: NS 1,000 ML IV ONE (09:22)
--- NOTE | 2025-06-12 09:23 | NUR ---
06/12/25 0923 KWASI WHITE RESTING ON GURNEY, RAILS UP, BRAKES LOCKED. CALL LIGHT IN REACH. PT DENIES NEEDS AT THIS TIME.
[2025-06-12] MEDS ORDERED: Ondansetron HCl 2 MG / ML 2ML Vial ONE (09:58)
[2025-06-12 10:49] VITALS: BP 133/66
== END 2025-06-12 11:02 | disposition home or self-care (01) ==
LOC: ORSCSDS 08:06
PROVIDERS: Student in an Organized Health Care Education/Training Program
PROC: 08RK3JZ Replacement of Left Lens with Synthetic Substitute, Percutaneous Approach (ICD-10-PCS; principal; 2025-06-12 10:00)
DX: H25.812 Combined forms of age-related cataract, left eye (principal); Z96.1 Presence of intraocular lens; H35.3122 Nonexudative age-related macular degeneration, left eye, intermediate dry stage; I12.9 Hypertensive chronic kidney disease with stage 1 through stage 4 chronic kidney disease, or unspecified chronic kidney disease; N18.9 Chronic kidney disease, unspecified; J44.9 Chronic obstructive pulmonary disease, unspecified; K21.9 Gastro-esophageal reflux disease without esophagitis; F03.90 Unspecified dementia, unspecified severity, without behavioral disturbance, psychotic disturbance, mood disturbance, and anxiety; Z86.73 Personal history of transient ischemic attack (TIA), and cerebral infarction without residual deficits; Z79.01 Long term (current) use of anticoagulants; Z79.899 Other long term (current) drug therapy; F17.210 Nicotine dependence, cigarettes, uncomplicated
CPT/HCPCS: J2250; J2405; J2704; J3010; J7040; V2632